=== PATIENT | female | born 1985 | race Caucasian/White ===

== ENCOUNTER 2020-04-28 18:55 | Emergency (ER) | payer OTHER ==
[~2020-04-28] VITALS: Ht 154.9 cm; Wt 99.5 kg
[2020-04-28] MEDS ORDERED: IBUPROFEN 600 MG TABLET PO ONE (20:15)
[2020-04-28 21:20] VITALS: BP 132/81
== END 2020-04-28 21:46 | disposition home or self-care (01) ==
LOC: EMS 18:56
DX: S13.4XXA Sprain of ligaments of cervical spine, initial encounter (principal); V49.9XXA Car occupant (driver) (passenger) injured in unspecified traffic accident, initial encounter; Y93.89 Activity, other specified; Y92.89 Other specified places as the place of occurrence of the external cause; Y99.8 Other external cause status
CPT/HCPCS: 72040; 99283